=== PATIENT | male | born 1990 | race Caucasian/White ===

== ENCOUNTER 2019-02-02 17:20 | Inpatient (IN) | payer OTHER ==
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
[2019-02-02 17:44] LABS: PLATELET COUNT 276 10^3/uL (150-400)
--- NOTE | 2019-02-02 22:30 | ASMTTCLDSP ---
TLC Discharge Disposition Disposition: Answers: Admit Discharge Concerns/Recommendations: Notes: In consultation with [facility] ED physician, Rafal Velasquez MD and on-call psychiatrist, Hannah Landry MD, both concurred that pt appears to meet 27-65 criteria requiring psychiatric hospitalization as pt appears to be gravely disabled due to a mental illness condition. Pt was read the Patient Rights and Responsibilities Statement at [facility]. The original placed on chart, and was given photocopy of Rights. Pt signed the Patient Rights. Pt was given the 3[facility] prohibited belongings list while in the ED. Was patient given the Answers: Yes Inpatient Behavioral Health Prohibited Belongings List while in the ED? For inpatient Hannah Landry MD admission, the following psychiatrist agreed to accept patient for admission to Behavioral Health ([facility]): Date Signed: 02/02/2019 10:29 PM Electronically Signed By:Suzanna Ochoa
[2019-02-02] MEDS ORDERED: ACETAMINOPHEN 325 MG TAB PO PRN (22:41)
[2019-02-02] MEDS ORDERED: OLANZapine DISINTEGR 5 MG TAB PO PRN (22:41)
[2019-02-02] MEDS ORDERED: MAG HYDROX/AL HYDROX/SIMETH 30 ML UDCUP PO PRN (22:41)
[2019-02-02] MEDS ORDERED: LORazepam 0.5 MG TAB PO PRN (22:41)
[2019-02-02] MEDS ORDERED: MAGNESIUM HYDROXIDE 30 ML UDCUP PO PRN (22:41)
[2019-02-02] MEDS ORDERED: NICOTINE POLACRILEX 2 MG GUM B PRN (22:41)
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
--- NOTE | 2019-02-03 13:33 | PDMN ---
Medical Necessity [place] [facility] [id number] Other Psychotic Disorders, Adult: Inpatient Care , 3 days: 28 yo w/ unspecified psychosis, r/o cannabis induced psychosis w/ delusions and cannabis use d/o, severeity unknown. On M1 hold for grave disability w/ paranoia and delusions. Admit IP status BEH unit.
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
--- NOTE | 2019-02-03 15:58 | ASMTCMCOM ---
CM Note CM Note Notes: CC spoke with pt's parents. Per parents, their son's behavior began to change last august when he told them that he saw someone reaching over the fence in their back yard. He became increasingly suspicious, paranoid and preoccupied; he stayed up late at night instead of sleeping and watched the home's security feed on his computer. He was eating and did some work. he had thought of coming out to [place] for awhile, but was prompted to come out sooner due to concerns over his safety. They also shared that his oldest sister has been diagnosed with either schizophrenia or bipolar disorder; she presently takes meds. Pt has agreed to a referral for mental health. No out-pt referral has been made yet. Date Signed: 02/03/2019 03:57 PM Electronically Signed By:Mitra Wall
--- NOTE | 2019-02-03 18:04 | HOSPPROG ---
Hospitalist Progress Note Assessment/Plan: CC: t HISTORY: CC:this is an internal medicine consultation for patient admitted to behavioral health unit for acute psychosis HISTORY: This patient was sent from [facility] to the ER yesterday with acute psychosis and marijuana abuse Today the patients symptoms of anxiety and psychosis and paranoia have resolved and he feels back to his normal baseline Other than this episode yesterday the patient says he has been feeling well and in good health though he does have a history of having similar symptoms with marijuana abuse in the past. Gives no previous history of other mental health disorder. States he has been overall very healthy, takes no medications or other treatments for illness, does not see doctors for anything in particular, no ongoing medical issues. He has had injuries including a dislocated shoulder and a back injury from skateboarding The main symptom that bothers him is occasional palpitations described as a rapid heartbeat lasting 5 sec or less that occur in the evenings before going to bed. He never has these symptoms at other times, never has any exertional symptoms, has no history of syncope, no family history of syncope or sudden . Neither he nor any of his family members have had any other heart issues that he is aware of. ROS: A comprehensive 10 system review revealed no other significant findings PAST MEDICAL HISTORY: Shoulder dislocation Spine fracture from skateboarding FAMILY MEDICAL HISTORY: He is unaware of any significant family medical issues SOCIAL HISTORY: Just moved here from [place] Marijuana use as above No tobacco Occasional alcohol MEDICATIONS: The patients list has been reconciled by our clinical pharmacist in the EMR. I have reviewed the list and ordered appropriate medicines. PHYSICAL EXAMINATION: Vital Signs: All stable without fever Examination: General: alert, oriented, good mentation, relaxed Skin: warm, dry, good color, no rash HEENT: normal Neck: no mass or jvd Resps: relaxed Lungs: clear breath sounds Heart: regular, no murmur Abdomen: soft, nondistended, nontender, +BS, no mass Upper Extremities: normal Lower Extremities: no edema, warm No Bleeding or bruising Neurologic: normal speech/language, normal command and control specialist, no focal weakness IV site: looks normal LABORATORY DATA: Urine drug screen positive for marijuana basic metabolic panel CBC TSH unremarkable (borderline blood glucose yesterday likely due to his acute paranoid psychosis) ASSESSMENT: * acute psychosis * marijuana abuse * hx of infrequent palpitations, always very brief lasting < 5 seconds, with no hx of syncope, and never exertion induced -if possible will get ekg here. if that is normal would no do further eval unless more concerning symptoms -if can't get ekg here, would be reasonable to have him connect with a pcp as outpt to do that procedure Objective: Vital Signs Temp Pulse Resp BP Pulse Ox 37.0 C 70 14 144/70 H 96 02/03/19 06:00 02/03/19 06:00 02/03/19 06:00 02/03/19 06:00 02/03/19 06:00 ICD10 Worksheet Patient Problems: Problems Problem Status Onset Acute psychosis Acute
--- NOTE | 2019-02-03 18:46 | PDGENHP ---
History and Physical History and Physical: CC:this is an internal medicine consultation for patient admitted to behavioral health unit for acute psychosis HISTORY: This patient was sent from [facility] to the ER yesterday with acute psychosis and marijuana abuse Today the patients symptoms of anxiety and psychosis and paranoia have resolved and he feels back to his normal baseline Other than this episode yesterday the patient says he has been feeling well and in good health though he does have a history of having similar symptoms with marijuana abuse in the past. Gives no previous history of other mental health disorder. States he has been overall very healthy, takes no medications or other treatments for illness, does not see doctors for anything in particular, no ongoing medical issues. He has had injuries including a dislocated shoulder and a back injury from skateboarding The main symptom that bothers him is occasional palpitations described as a rapid heartbeat lasting 5 sec or less that occur in the evenings before going to bed. He never has these symptoms at other times, never has any exertional symptoms, has no history of syncope, no family history of syncope or sudden . Neither he nor any of his family members have had any other heart issues that he is aware of. ROS: A comprehensive 10 system review revealed no other significant findings PAST MEDICAL HISTORY: Shoulder dislocation Spine fracture from skateboarding FAMILY MEDICAL HISTORY: He is unaware of any significant family medical issues SOCIAL HISTORY: Just moved here from [place] Marijuana use as above No tobacco Occasional alcohol MEDICATIONS: The patients list has been reconciled by our clinical pharmacist in the EMR. I have reviewed the list and ordered appropriate medicines. 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 if that is normal would no do further eval unless more concerning symptoms -if can't get ekg here, would be reasonable to have him connect with a pcp as outpt to do that procedure
--- NOTE | 2019-02-04 13:34 | ASMTBHDC ---
Notes Note: Notes: Pt. attending treatment team planning this morning. Pt. stated he agrees he needs to avoid THC, CC provided pt. with a relapse prevention plan worksheet. Pt. reports he will be living with friends, until he is able to get his own place. Pt. reports feeling "good". Pt. stated he has "little trouble sleeping" adding he feels rested today. Pt. reports getting enough to eat and attending groups "yesterday". Pt. reports he is not currently taking any medications. Pt. reports his goals for today are to work on the relapse prevention plan and his safety plan. Pt. denied SI, HI, AVH and paranoia. Pt. agreed to follow up with P and agreed with the possibility of getting a case monitor. Pt. presents as alert, calm, polite, good eye contact, groomed, and cooperative. Staff report pt. sleeping 7.5 hours and having no scheduled medications. Pt. has an intake appointment with P on 02/08 @ 2:30pm. Pt. may discharge on Monday 02/05, per . Date Signed: 02/04/2019 01:32 PM Electronically Signed By:Iza Kimball
--- NOTE | 2019-02-04 17:29 | SOAPPROG ---
SOAP Progress Note Assessment/Plan: Assessment: Plan: 02/04/19 17:29 Psychosis: Much improved. Will CCM, likely d/c tomorrow if all is well. Subjective: Pt seen, discussed with staff, chart reviewed, interviewed in Treatment Team meeting. He reports feeling "a lot better" today. Mood and anxiety have improved, less paranoid. Slept well last night. Continues to isolate in his room, not interacting with others much. He states he needs to "get back to my life" and wants to "get a regular job 40 hours a week." He notes the importance of establishing a consistent schedule and eliminating MJ use. Denies any SI. MSE: Well-groomed, coop. Affect is euthymic, stable, approp. Mood is "a lot better." TP is linear, goal-directed. TC reveals mild paranoia with good ability to discriminate this from his "normal thoughts." Denies SI/HI/. Objective: Vital Signs Temp Pulse Resp BP Pulse Ox 36.9 C 69 16 126/81 H 96 02/04/19 06:00 02/04/19 06:00 02/04/19 06:00 02/04/19 06:00 02/04/19 06:00 - Time Spent With Patient Time Spent With Patient: 25" ICD10 Worksheet Patient Problems: Problems Problem Status Onset Acute psychosis Acute
[2019-02-05 06:41] VITALS: BP 120/75
--- NOTE | 2019-02-05 12:29 | BDS ---
[f rep st] BEHAVIORAL HEALTH DISCHARGE SUMMARY REASON FOR ADMISSION: From the ED note dated 02/02/2019, patient with no past psychiatric history, presented [facility] and was placed on an M1 hold. Patient reported paranoia. Patient reported onset of paranoia after smoking cannabis. Patient was admitted involuntarily and on an M1 hold due to being gravely disabled due to mental illness. Patient was admitted for safety, crisis stabilization, and medication management. 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 ADMISSION PHYSICAL EXAM: Patient was seen on 02/03/2019, for history and physical and for medical clearance for inpatient psychiatric hospitalization and treatment. Patient was medically cleared for inpatient psychiatric hospitalization and treatment. For further details, please refer to history and physical, hospitalist progress note document dated 02/03/2019. ADMISSION LABS: 1. CBC within normal limits. 2. BMP within normal limits except glucose was elevated at 109. 3. TSH within normal limits at 1.280. 4. Toxicology screen non-negative for marijuana, negative for all other substances that were screened, and negative for ethyl alcohol. MAJOR PROCEDURES OR TESTS: None. HOSPITAL COURSE: The most prominent symptoms and behaviors while the patient was here were reports of mild anxiety. Treatment modalities utilized were milieu and group therapy. Patient's paranoid delusions cleared, and at time of discharge, the patient was no longer reporting paranoid delusions. Patient has improved considerably with no signs of psychiatric symptoms and no psychiatric symptoms expressed. Patient reports he has improved since admission, states to be in stable condition, feels safe to discharge, and he contracts for safety. Patients response to treatment was good. There were no adverse or unexpected results of treatment. The patient was safe throughout stay, active in treatment , engaged in groups, and was appropriate with staff. Patient met with treatment team prior to discharge to assess readiness to discharge and review discharge plan. The treatment team consensus is the patient in stable condition , has a safe discharge plan, and is ready to discharge today. CONDITION AT DISCHARGE: Patient is in stable condition and is no longer a danger to self or others, and is not gravely disabled due to mental illness. Patient is no longer in need of inpatient level of care, and can be safely and effectively treated within the community. The patients level of risk at time of discharge is low. MSE: The patient is casually dressed and with good hygiene , and looks stated age. Patient is sitting, posture is upright, and position is relaxed. Patient appears awake, alert, and responds appropriately and reasonably during interview. Patient is engaged, relates well to interviewer, and emotional facial expression is appropriate to situation and changes appropriately with topic. Patient is cooperative, makes comfortable eye contact , and movements are voluntary, deliberate, coordinated, and smooth and even with no inappropriate movements. Patient makes laryngeal sounds effortlessly and shares conversation appropriately; pace of conversation is appropriate, and stream of talking is fluent; articulation is clear and understandable; word choice is effortless and appropriate for education level; completes sentences, occasionally pausing to think; rate and volume are appropriate for interview and setting. Patient reports mood as euthymic. Patients affect is stable with full variable range, congruent with mood, and appropriate to speech and circumstances. Patient has linear and logical thinking, with no loose associations, tangential thought, thought blocking, concrete thinking, or any other signs of formal thought disorder. Patient denies suicidal and homicidal ideation, and denies hallucinations and delusions. Patient appears to be a reliable historian with sound judgement and good insight into current condition. Patient has no apparent dysfunction in recent or remote memory noted , and no evidence of gross cognitive dysfunction noted at any point during the interview. DISCHARGE DIAGNOSIS: Cannabis-induced psychosis with delusion. CURRENT MEDICATIONS: None. DISPOSITION: Patient left hospital independently and voluntarily and plans to return to his home in [place], [place]. FOLLOWUP: email marketing coordinator reports the appropriate outpatient follow-up services have been established and outpatient appointments have been scheduled. The patient received written instructions with times and dates of outpatient follow-up appointments. LEGAL COURSE: The patient was admitted on an M1 hold for involuntary inpatient psychiatric hospitalization. Patient discharged today independently and voluntarily. ATTITUDE AT TIME OF DISCHARGE: The patients attitude was positive at time of discharge, and patient reports looking forward to discharging today. The patient reports he feels safe to discharge, is no longer a danger to himself or others, is in stable condition, and contracts for safety. LABS AND STUDIES: There were no pending labs or studies at time of discharge. ADVANCE DIRECTIVES: There were no advance directives on file, and patient was full code during this hospitalization. /[id number]/MODL MTDD
--- NOTE | 2019-02-08 13:58 | CPEKG ---
Test Reason : OPEN Blood Pressure : / mmHG Vent. Rate : 063 BPM Atrial Rate : 061 BPM P-R Int : 156 ms QRS Dur : 126 ms QT Int : 412 ms P-R-T Axes : 066 038 065 degrees QTc Int : 422 ms SINUS RHYTHM NONSPECIFIC INTRAVENTRICULAR CONDUCTION DELAY Confirmed by Vadim Stout ([id number]) on 02/08/2019 1:57:52 PM Referred By: Hannah Landry Confirmed By:Vadim Stout
== END 2019-02-05 11:50 | disposition home or self-care (01) | DRG 897 ==
LOC: BBEH 22:10
PROVIDERS: ADMIT Internal Medicine; ATTEND Psychiatry & Neurology Behavioral Neurology & Neuropsychiatry
DX: F12.150 Cannabis abuse with psychotic disorder with delusions (principal)
CPT/HCPCS: 80305; G0480